=== PATIENT | female | born 1955 | race Caucasian/White ===

== ENCOUNTER 2016-08-05 20:00 | Inpatient (IN) | payer BC ==
[~2016-08-05] VITALS: Ht 160 cm; Wt 61.4 kg
[~2016-08-05 20:00] MED LIST: ABILIFY2 MG PO; ACIPHEX20 MG PO; AMITIZA24 MICROGR PO; ANALGESIC325 M1 PO; ASPIR-TRIN325 M1 PO; ASPIRIN325 MG PO; ATROPINE 1100 DROP/5 RIGHT EYE; CALCIUM 600 +1 EAC1 PO; CALCIUM 600 +1 EAC5 PO; CALCIUM 600 +1 EAC7; CALCIUM 600 +1 EAC7 PO; COBAL-10001000 MCG/2 IM; COMBIGAN O20 DROP/5 RIGHT EYE; CRESTOR10 MG PO; CRESTOR20 MG PO; DAILY VITAMIN1 EAC8 PO; DILANTIN100 MG PO; DOCUSATE SODIU100 MG PO; EFFEXOR75 MG PO; ERGOCALCIF50000 UNIT PO; ESTRING1 EACH VG; EXFORGE 5/161 TABLET PO; FAMOTIDINE40 MG PO; FOLIC ACID1 MG PO; FOLVITE1 MG PO; Folvite PO; GABAPENTIN100 MG PO; KEPPRA1000 MG PO; KEPPRA250 MG PO; KEPPRA500 MG PO; LEVAQUIN500 MG PO; LITE COAT ASPI325 M1 PO; LO-DOSE ASPIRIN81 M1 PO; LOVAZA1 GM PO; NEURONTIN400 MG PO; NORTRIPTYLINE H25 MG PO; PAMELOR25 MG PO; PEPCID40 MG PO; PLAVIX75 MG PO; REQUIP2 MG PO; SEROQUEL200 MG PO; SIMBRINZA 1%-0.28 ML RIGHT EYE; SINGULAIR10 MG; SINGULAIR10 MG PO; SUCRALFATE1 GM/10 ML PO; Singulair PO; TOPAMAX100 MG PO; TOPAMAX25 MG PO; TYLENOL ARTHRI650 MG PO; VASOLEX OINTMENT5 GM TP; VENLAFAXINE HCL75 M2 PO; VIMPAT150 MG PO; VIMPAT200 MG PO; VIMPAT50 MG PO; VITAMIN D PO; VITAMIN D1000 INTUN PO; VITAMIN D250000 UNIT PO; VOLTAREN 1% GE100 GM TP; ZETIA10 MG PO; Zofran PO
[2016-08-05 20:55] LABS: HEMATOCRIT 42.7 % (36.0-46.0); MCH 30.4 PG (29.0-34.0); MEAN PLAT.VOLUME 9.7 uM^3 (9.5-12.4); PLATELET COUNT 179 K/uL (156-360); RBC DIS.WIDTH-CV 13.1 % (11.8-14.6); RBC DIS.WIDTH-SD 43.3 % (39-53); RED BLOOD COUNT 4.64 M/uL (3.80-5.20); WHITE BLOOD COUNT 4.7 K/uL (4.1-10.2)
[2016-08-05 21:18] LABS: CHLORIDE 110 mEq/L (99-109); POTASSIUM 4.2 mEq/L (3.7-5.4); SODIUM 139 mEq/L (136-147)
[2016-08-05 21:19] LABS: GLUCOSE 127 mg/dL (70-99)
[2016-08-05 21:21] LABS: ANION GAP 10 MEQ/L (2-14)
[2016-08-05 21:23] LABS: GFR ESTIMATE (CALCULATED) > 59 mL/min/
[2016-08-05 21:24] LABS: UREA NITROGEN (BUN) 15 mg/dL (9-23)
[2016-08-05] MEDS ORDERED: KEPPRA500 MG PO (22:48)
[2016-08-05] MEDS ORDERED: DILANTIN100 MG PO ×2 (22:53→22:54)
[2016-08-05] MEDS ORDERED: PLAVIX75 MG PO (22:53)
[2016-08-05] MEDS ORDERED: ARICEPT5 MG PO (22:54)
[2016-08-05 23:47] LABS: ADD MIUA? NO; BILIRUBIN NEGATIVE; BLOOD NEGATIVE; COLOR STRAW ((YELLOW)); GLUCOSE (STRIP) NEGATIVE; KETONES NEGATIVE; LEUKOCYTES NEGATIVE; NITRITE NEGATIVE; PROTEIN (STRIP) 30; SPECIFIC GRAVITY 1.014 (1.000-1.030); UCUL ADDED? NO; UROBILINOGEN 0.2 MG/DL (0.2-1.0)
[2016-08-06] VITALS (7 sets, daily range): BP systolic 92–186; BP diastolic 57–84
[2016-08-06 07:08] LABS: ALKALINE PHOSPHATASE 48 IU/L (3-129); ANION GAP 5 MEQ/L (2-14); CHLORIDE 112 MEQ/L (99-109); GFR ESTIMATE (CALCULATED) > 59 mL/min/; POTASSIUM 3.7 MEQ/L (3.7-5.4); SAMPLE HEMOLYSIS CHECK 0; SAMPLE ICTERIC CHECK 0; SAMPLE LIPEMIA CHECK 0; SODIUM 141 MEQ/L (136-147); TOTAL BILIRUBIN 0.3 MG/DL (0.0-1.0); UREA NITROGEN (BUN) 12 mg/dL (9-23)
[2016-08-06 07:09] LABS: GLUCOSE 76 mg/dL (70-99)
[2016-08-06 08:53] LABS: PHENOBARBITAL < 5.0 MCG/ML (15-40)
[2016-08-07 04:03] VITALS: BP 109/66
[2016-08-07 07:17] LABS: EOSINOPHIL (%) 0.6 % (0-5); IMMATURE GRANULOCYTE (%) 0.2 % (0.0-0.7); LYMPHOCYTE COUNT 1.5 K/uL (1.0-2.8); MCH 30.7 PG (29.0-34.0); MCHC 33.1 G/DL (30.0-36.0); MCV 92.7 FL (83-99); MEAN PLAT.VOLUME 10.3 uM^3 (9.5-12.4); MONOCYTE (%) 7.5 % (3-12); MONOCYTE COUNT 0.5 K/uL (0-0.8); NEUTROPHIL (%) 68.7 % (45-76); NEUTROPHIL COUNT 4.4 K/uL (1.8-6.4); PLATELET COUNT 172 K/uL (156-360); RBC DIS.WIDTH-CV 13.2 % (11.8-14.6); RBC DIS.WIDTH-SD 44.9 % (39-53); RED BLOOD COUNT 4.53 M/uL (3.80-5.20)
[2016-08-07 07:18] LABS: WHITE BLOOD COUNT 6.4 K/uL (4.1-10.2)
[2016-08-07 07:43] LABS: ANION GAP 12 MEQ/L (2-14); CHLORIDE 106 MEQ/L (99-109); GFR ESTIMATE (CALCULATED) > 59 mL/min/; GLUCOSE 75 mg/dL (70-99); POTASSIUM 3.5 MEQ/L (3.7-5.4); SAMPLE HEMOLYSIS CHECK 0; SAMPLE ICTERIC CHECK 0; SAMPLE LIPEMIA CHECK 0; SODIUM 139 MEQ/L (136-147); UREA NITROGEN (BUN) 9 mg/dL (9-23)
[2016-08-07 08:00] VITALS: BP 124/68
[2016-08-07 11:30] VITALS: BP 94/64
[2016-08-07 12:30] VITALS: BP 112/74
[2016-08-07 16:30] VITALS: BP 124/77
[2016-08-07 20:15] VITALS: BP 127/62
[2016-08-08] VITALS (7 sets, daily range): BP systolic 100–170; BP diastolic 61–77
[2016-08-09 03:15] VITALS: BP 100/64
[2016-08-09 07:06] LABS: EOSINOPHIL (%) 2.5 % (0-5); EOSINOPHIL COUNT 0.1 K/uL (0-0.3); HEMATOCRIT 39.5 % (36.0-46.0); IMMATURE GRANULOCYTE (%) 0.2 % (0.0-0.7); LYMPHOCYTE COUNT 1.7 K/uL (1.0-2.8); MCH 30.6 PG (29.0-34.0); MCHC 33.7 G/DL (30.0-36.0); MCV 90.8 FL (83-99); MEAN PLAT.VOLUME 10.7 uM^3 (9.5-12.4); MONOCYTE (%) 11.5 % (3-12); MONOCYTE COUNT 0.5 K/uL (0-0.8); NEUTROPHIL COUNT 2.1 K/uL (1.8-6.4); PLATELET COUNT 157 K/uL (156-360); RBC DIS.WIDTH-CV 12.9 % (11.8-14.6); RBC DIS.WIDTH-SD 42.8 % (39-53); RED BLOOD COUNT 4.35 M/uL (3.80-5.20)
[2016-08-09 07:09] LABS: WHITE BLOOD COUNT 4.4 K/uL (4.1-10.2)
[2016-08-09 07:50] LABS: ANION GAP 12 MEQ/L (2-14); CHLORIDE 110 MEQ/L (99-109); GFR ESTIMATE (CALCULATED) > 59 mL/min/; POTASSIUM 3.4 MEQ/L (3.7-5.4); SAMPLE HEMOLYSIS CHECK 0; SAMPLE ICTERIC CHECK 0; SAMPLE LIPEMIA CHECK 0; SODIUM 144 MEQ/L (136-147); UREA NITROGEN (BUN) 11 mg/dL (9-23)
[2016-08-09 07:59] LABS: GLUCOSE 98 mg/dL (70-99)
[2016-08-09 08:00] VITALS: BP 92/55
[2016-08-09 11:10] VITALS: BP 126/67
[2016-08-09] MEDS ORDERED: LEVETIRACETAM500 MG PO (13:38)
== END 2016-08-09 15:37 | disposition home health service (06) | DRG 101 ==
LOC: EME → EDBD 20:00 → EME 20:00 → EDOF 23:32 → 4EAST 23:32
PROVIDERS: Family Medicine; Internal Medicine
DX: G40.919 Epilepsy, unspecified, intractable, without status epilepticus (principal); I10 Essential (primary) hypertension; I73.9 Peripheral vascular disease, unspecified; J44.9 Chronic obstructive pulmonary disease, unspecified; Z86.73 Personal history of transient ischemic attack (TIA), and cerebral infarction without residual deficits; E78.5 Hyperlipidemia, unspecified; K21.9 Gastro-esophageal reflux disease without esophagitis; F31.9 Bipolar disorder, unspecified; R53.1 Weakness
CPT/HCPCS: 70450; 80048; 80053; 80156; 80184; 80185; 81003; 85025; 85027; 93005; 99281; 99285; J0360; J1165; J1885; J1953; J2060; J2250; J7030; J7050

== ENCOUNTER 2016-12-29 18:23 | Observation (INO) | payer BC ==
[~2016-12-29] VITALS: Ht 162.6 cm; Wt 56.7 kg
[~2016-12-29 18:23] MED LIST changes: +ARICEPT5 MG PO; +ATROPINE 1100 DROP/5 LEFT EYE; +LEVETIRACETAM500 MG PO
[2016-12-29 18:43] LABS: POINT-OF-CARE METER ID UU13113702
[2016-12-29 19:08] LABS: HEMATOCRIT 38.1 % (36.0-46.0); MCH 28.3 PG (29.0-34.0); MCHC 32.3 G/DL (30.0-36.0); MCV 87.8 FL (83-99); MEAN PLAT.VOLUME 8.9 uM^3 (9.5-12.4); PLATELET COUNT 195 K/uL (156-360); RBC DIS.WIDTH-SD 52.2 % (39-53); RED BLOOD COUNT 4.34 M/uL (3.80-5.20)
[2016-12-29 19:34] LABS: CHLORIDE 108 mEq/L (99-109); SODIUM 135 mEq/L (136-147)
[2016-12-29 19:36] LABS: GLUCOSE 96 mg/dL (70-99)
[2016-12-29 19:37] LABS: ANION GAP 5 MEQ/L (2-14)
[2016-12-29 19:40] LABS: GFR ESTIMATE (CALCULATED) > 59 mL/min/
[2016-12-29 19:41] LABS: UREA NITROGEN (BUN) 15 mg/dL (9-23)
[2016-12-29 20:15] LABS: ADD MIUA? NO; BILIRUBIN NEGATIVE; BLOOD NEGATIVE; COLOR YELLOW ((YELLOW)); GLUCOSE (STRIP) NEGATIVE; KETONES NEGATIVE; LEUKOCYTES NEGATIVE; NITRITE NEGATIVE; PROTEIN (STRIP) NEGATIVE; SPECIFIC GRAVITY 1.013 (1.000-1.030); UCUL ADDED? NO; UROBILINOGEN 0.2 MG/DL (0.2-1.0)
[2016-12-29] MEDS ORDERED: VALSARTAN160 MG PO (22:23)
[2016-12-29] MEDS ORDERED: KEPPRA XR750 MG PO (22:24)
[2016-12-29] MEDS ORDERED: PREDNISOLONE AC15 ML RIGHT EYE (22:26)
[2016-12-29] MEDS ORDERED: ERGOCALCIF50000 UNIT PO (22:27)
[2016-12-29] MEDS ORDERED: CALCIUM 600 +1 EAC2 PO (22:27)
[2016-12-30] VITALS (7 sets, daily range): BP systolic 113–193; BP diastolic 58–78
[2016-12-30 06:04] LABS: HEMATOCRIT 38.5 % (36.0-46.0); MCH 28.1 PG (29.0-34.0); MCHC 31.7 G/DL (30.0-36.0); MCV 88.7 FL (83-99); MEAN PLAT.VOLUME 9.8 uM^3 (9.5-12.4); PLATELET COUNT 210 K/uL (156-360); RBC DIS.WIDTH-CV 16.4 % (11.8-14.6); RBC DIS.WIDTH-SD 53.5 % (39-53); RED BLOOD COUNT 4.34 M/uL (3.80-5.20); WHITE BLOOD COUNT 5.9 K/uL (4.1-10.2)
[2016-12-30 06:38] LABS: ANION GAP 7 MEQ/L (2-14); CHLORIDE 108 MEQ/L (99-109); GFR ESTIMATE (CALCULATED) > 59 mL/min/; GLUCOSE 90 mg/dL (70-99); POTASSIUM 3.9 MEQ/L (3.7-5.4); SAMPLE HEMOLYSIS CHECK 0; SAMPLE ICTERIC CHECK 0; SAMPLE LIPEMIA CHECK 0; SODIUM 138 MEQ/L (136-147); UREA NITROGEN (BUN) 10 mg/dL (9-23)
[2016-12-31 00:30] VITALS: BP 150/60
[2016-12-31 04:54] VITALS: BP 154/64
[2016-12-31 11:11] VITALS: BP 140/65
[2016-12-31 15:21] VITALS: BP 123/61
== END 2016-12-31 17:31 | disposition home or self-care (01) ==
LOC: EME 18:23 → EDOF 22:40 → 5WEST 12-30 01:57
PROVIDERS: Emergency Medicine; Hospitalist
DX: R41.82 Altered mental status, unspecified (principal); R56.9 Unspecified convulsions; K21.9 Gastro-esophageal reflux disease without esophagitis; Z86.73 Personal history of transient ischemic attack (TIA), and cerebral infarction without residual deficits; I65.21 Occlusion and stenosis of right carotid artery; I73.9 Peripheral vascular disease, unspecified; I10 Essential (primary) hypertension; E78.5 Hyperlipidemia, unspecified; J44.9 Chronic obstructive pulmonary disease, unspecified; F29 Unspecified psychosis not due to a substance or known physiological condition; F32.9 Major depressive disorder, single episode, unspecified; R91.8 Other nonspecific abnormal finding of lung field; F31.9 Bipolar disorder, unspecified; Z88.8 Allergy status to other drugs, medicaments and biological substances
CPT/HCPCS: 70450; 70551; 71010; 80048; 80185; 81003; 82948; 83605; 85027; 87040; 93005; 93880; 99281; 99285; G0378; J0360; J1644; J2250; J7030

== ENCOUNTER 2017-06-28 18:51 | Observation (INO) | payer BC ==
[~2017-06-28] VITALS: Ht 162.6 cm; Wt 60.2 kg
[~2017-06-28 18:51] MED LIST changes: +CALCIUM 600 +1 EAC2 PO; +KEPPRA XR750 MG PO; +PREDNISOLONE AC15 ML RIGHT EYE
[2017-06-28 19:44] LABS: HEMATOCRIT 42.9 % (36.0-46.0); HEMOGLOBIN 14.4 G/DL (11.9-15.5); MCH 30.7 PG (29.0-34.0); MCHC 33.6 G/DL (30.0-36.0); MCV 91.5 FL (83-99); PLATELET COUNT 164 K/uL (156-360); RBC DIS.WIDTH-CV 13.4 % (11.8-14.6); RBC DIS.WIDTH-SD 45.4 % (39-53); RED BLOOD COUNT 4.69 M/uL (3.80-5.20); WHITE BLOOD COUNT 4.7 K/uL (4.1-10.2)
[2017-06-28 19:53] LABS: ALBUMIN 4.1 g/dL (3.2-4.8); CHLORIDE 104 mEq/L (99-109); POTASSIUM 3.9 mEq/L (3.7-5.4); SODIUM 138 mEq/L (136-147)
[2017-06-28 19:55] LABS: GLUCOSE 93 mg/dL (70-99); TOTAL PROTEIN 6.4 g/dL (6.4-8.3)
[2017-06-28 19:57] LABS: TOTAL BILIRUBIN 0.3 mg/dL (0.0-1.0)
[2017-06-28 19:59] LABS: ALKALINE PHOSPHATASE 73 IU/L (3-129); CREATININE 0.7 mg/dL (0.6-1.3); GFR ESTIMATE (CALCULATED) > 59 mL/min/
[2017-06-28 20:00] LABS: AST (GOT) 14 IU/L (2-34); UREA NITROGEN (BUN) 12 mg/dL (9-23)
[2017-06-28 20:02] LABS: ALT (GPT) 19 IU/L (3-49)
[2017-06-28 20:11] LABS: APPEARANCE CLEAR ((CLEAR)); BILIRUBIN NEGATIVE; BLOOD NEGATIVE; COLOR STRAW ((YELLOW)); GLUCOSE (STRIP) NEGATIVE; KETONES NEGATIVE; LEUKOCYTES TRACE; NITRITE NEGATIVE; PROTEIN (STRIP) NEGATIVE; SPECIFIC GRAVITY 1.006 (1.000-1.030); UROBILINOGEN 0.2 MG/DL (0.2-1.0)
[2017-06-28 20:15] LABS: BACTERIA RARE /HPF; EPITHELIAL CELLS RARE /HPF; MUCUS NONE SEEN /LPF; RED BLOOD CELLS 0-5 /HPF (0-5); UCUL ADDED? NO; WHITE BLOOD CELLS 0-5 /HPF (0-5)
[2017-06-29] MEDS ORDERED: DILANTIN100 MG PO ×2 (00:46)
[2017-06-29 01:11] VITALS: BP 107/58
[2017-06-29 03:51] VITALS: BP 106/53
[2017-06-29 07:01] VITALS: BP 140/63
[2017-06-29 12:19] VITALS: BP 124/71
[2017-06-29] MEDS ORDERED: KEPPRA1000 MG PO (13:05)
== END 2017-06-29 14:22 | disposition home or self-care (01) ==
LOC: EME 18:51 → EDOF 23:18 → 5WEST 23:18 → EDOF 23:18 → ENRESERV 23:20 → 5WEST 06-29 01:03
PROVIDERS: Emergency Medicine
DX: G40.409 Other generalized epilepsy and epileptic syndromes, not intractable, without status epilepticus (principal); K21.9 Gastro-esophageal reflux disease without esophagitis; Z86.73 Personal history of transient ischemic attack (TIA), and cerebral infarction without residual deficits; R23.3 Spontaneous ecchymoses; I10 Essential (primary) hypertension; E78.5 Hyperlipidemia, unspecified; I73.9 Peripheral vascular disease, unspecified; J44.9 Chronic obstructive pulmonary disease, unspecified; I65.29 Occlusion and stenosis of unspecified carotid artery; Z79.02 Long term (current) use of antithrombotics/antiplatelets; F31.9 Bipolar disorder, unspecified; Z87.891 Personal history of nicotine dependence
CPT/HCPCS: 70450; 71045; 80053; 80185; 81003; 85027; 87040; 93005; 99281; 99285; G0378; J2250; J7030; S0028